=== PATIENT | male | born 2000 | race Two or more races ===

== ENCOUNTER 2024-04-14 09:49 | Emergency (ER) | payer OTHER ==
[~2024-04-14] VITALS: Ht 180.3 cm; Wt 83.9 kg
[2024-04-14 10:23] VITALS: BP 133/80; O2SAT 100
[2024-04-14] MEDS ORDERED: LIDOCAINE HCL 1% 10ML VIAL ONE (11:34)
[2024-04-14] MEDS ORDERED: TETANUS & DIPHTHERIA TOX,ADULT 0.5 ML VIAL IM ONE (12:00)
[2024-04-14] MEDS ORDERED: TETANUS DIPHTHERIA TOX. ADSOR 5 ML VIAL IM ONE (12:02)
[2024-04-14] MEDS ORDERED: BACITRACIN-NEOMYCIN-POLYMYXIN 0.9 GM PACKET TOP ONE (12:22)
== END 2024-04-14 12:32 | disposition home or self-care (01) ==
LOC: ER 09:51
DX: S81.822A Laceration with foreign body, left lower leg, initial encounter (principal); W25.XXXA Contact with sharp glass, initial encounter; Y93.89 Activity, other specified; Y92.89 Other specified places as the place of occurrence of the external cause; Z88.0 Allergy status to penicillin